=== PATIENT | male | born 1975 | race Caucasian/White ===

== ENCOUNTER → 2018-04-08 | Outpatient (CLI) | payer OTHER | END | disposition home or self-care (01) | LOC: MRI 07:47 | DX: S83.242A Other tear of medial meniscus, current injury, left knee, initial encounter (principal); X58.XXXA Exposure to other specified factors, initial encounter; Y93.89 Activity, other specified; Y92.89 Other specified places as the place of occurrence of the external cause; Y99.8 Other external cause status; M25.862 Other specified joint disorders, left knee ==

== ENCOUNTER → 2019-04-14 | Day surgery (SDC) | payer OTHER ==
[~2019-04-14] VITALS: Ht 172.7 cm; Wt 107.0 kg
[~2019-04-14] MED LIST: ALEVE220 MG PO; DICYCLOMINE HCL10 MG PO; FIBER350 GM PO; VITAMIN D22000 UNIT PO; WATER PILL PO
[2019-04-14 13:50] VITALS: BP 123/74
[2019-04-14 15:40] VITALS: BP 137/69
[2019-04-14 15:55] VITALS: BP 124/68
[2019-04-14 16:02] VITALS: BP 122/64
== END | disposition home or self-care (01) ==
LOC: SDC 04-11 11:45
DX: K62.5 Hemorrhage of anus and rectum (principal); I10 Essential (primary) hypertension; F17.290 Nicotine dependence, other tobacco product, uncomplicated; Z98.890 Other specified postprocedural states; E66.9 Obesity, unspecified; Z88.5 Allergy status to narcotic agent; Z79.899 Other long term (current) drug therapy